=== PATIENT | male | born 1940 | race Hispanic/Latino ===

== ENCOUNTER 2017-07-23 13:14 | Outpatient (CLI) | payer MEDICARE ==
--- NOTE | 2017-07-23 14:07 | XRay Report ---
ROUTINE CHEST, TWO VIEWS: HISTORY: Cough. The trachea, heart, mediastinal contour, lung vaughan and bony thorax are unremarkable. IMPRESSION: No acute cardiopulmonary process is appreciated.
== END 2017-07-23 13:15 | disposition home or self-care (01) ==
LOC: XRAY 13:14
PROVIDERS: ATTEND Internal Medicine
DX: R05 Cough (principal)
CPT/HCPCS: 71020

== ENCOUNTER 2019-08-30 09:33 | Outpatient (CLI) | payer MEDICARE ==
--- NOTE | 2019-08-30 10:32 | XRay Report ---
CHEST 2 VIEWS INDICATION: R0.5 COUGH. COMPARISON: 07/23/2017. FINDINGS: Support devices: None. Heart: Within normal limits. Lungs/Pleura: No acute air space or interstitial disease. Mild underlying COPD remains. No significan t pleural effusion. IMPRESSION: Chronic mild changes of COPD. Signer Name: Merrill Paul MD Signed: 08/30/2019 10:27 AM Workstation Name: [id number]
== END 2019-08-30 09:34 | disposition home or self-care (01) ==
LOC: XRAY 09:33
PROVIDERS: ATTEND Internal Medicine
DX: J44.9 Chronic obstructive pulmonary disease, unspecified (principal)
CPT/HCPCS: 71046